=== PATIENT | male | born 1990 | race Caucasian/White ===

== ENCOUNTER 2021-02-06 21:15 | Emergency (ER) | payer MEDICARE, MEDICAID, SELFPAY ==
--- NOTE | ~2021-02-06 | CT_ITS ---
EXAMINATION: CT HEAD WITHOUT CONTRAST CLINICAL INFORMATION: Hit head against the wall. COMPARISON: None. TECHNIQUE: Contiguous axial imaging was performed from the skull base to vertex without intravenous contrast. This CT examination was performed using dose optimization techniques as appropriate, variously including the following: * Automated exposure control * Adjustment of mA and/or kV according to patient size (this includes techniques or standardized protocols for targeted exams where dose is matched to indication/reason for exam; i.e. extremities or head) Use of iterative reconstruction technique DLP: 684 mGy-cm. FINDINGS: There is no evidence of acute intracranial hemorrhage or territorial infarction. No abnormal mass effect or midline shift is seen. Enriquez to white matter differentiation is well preserved. No extra-axial fluid collections are identified. No hydrocephalus. No significant volume loss. There is no abnormal attenuation within the brain parenchyma. The osseous structures and soft tissues are normal. The mastoid air cells are well aerated. Extensive opacification of the paranasal sinuses. CT/CT head/brain wo con IMPRESSION: No acute intracranial pathology. Extends of opacification of the paranasal sinuses.
[2021-02-06 21:21] VITALS: PULSE 83; RESP 20; TEMP 36.4; O2SAT 98; BMI 27.3
[2021-02-06 22:57] VITALS: BP 103/68; PULSE 77; RESP 16
--- NOTE | 2021-02-07 00:31 | ED_ITS ---
HPI - General Adult General Chief complaint: General Medical Stated complaint: head inj Time Seen by Provider: 02/06/21 23:14 Source: patient Mode of arrival: ambulatory History of Present Illness HPI narrative: 30-year-old male with a past medical history of autism, intellectual disability, seizures, fungal infection, intermittent explosive disorder, chronic heart disease, presenting to the ED complaining of swelling/abrasions noted to forehead and nasal bridge S/P head butting wall while in the shower [employer]. Per staff from long-term in which patient resides patient has history of explosive disorder and which he has had similar instances in the past. Denies anticoagulation or LOC. At baseline patient is nonverbal, report he is at his baseline now. Denies injury to other area. Denies nausea, vomiting Onset (ago): hour(s) Related Data Previous Rx's Medication Instructions Recorded acetaminophen [Tylenol Extra 500 mg PO Q6H PRN #20 tab 02/07/21 Strength] doxycycline hyclate 100 mg PO BID 7 Days #14 tab 02/07/21 fluticasone propionate [Flonase 2 spray INTRANASAL DAILY #16 g 02/07/21 Allergy Relief] Allergies Allergy/AdvReac Type Severity Reaction Status Date / Time diphenhydramine Allergy Unknown Verified 02/06/21 21:20 haloperidol [From Haldol] Allergy Unknown Verified 02/06/21 21:20 hydroxyzine Allergy Unknown Verified 02/06/21 21:20 lorazepam Allergy Unknown Verified 02/06/21 21:20 methylphenidate Allergy Unknown Verified 02/06/21 21:20 Penicillins Allergy Unknown Verified 02/06/21 21:20 Review of Systems Review of Systems: Constitutional: No Fever, No Chills ENT/Mouth: No Ear Pain, + Nasal Congestion, No Sinus Pain, No sore throat, + Rhinorrhea, No Swallowing Difficulty, no epistaxis Cardiovascular: No Chest Pain, No SOB Respiratory: No Cough Gastrointestinal: No Nausea, No Vomiting, No Abdominal pain Musculoskeletal: No joint pain Skin: + abrasion, +forehead swelling Neuro: No Weakness, No LOC, +headache History limited as patient is nonverbal. History obtained from staff members Yes all other systems are reviewed and are negative [facility] Past Medical History Attestation statement: The following information was validated with the patient. Medical History (Updated 02/07/21 @ 00:33 by JAMIR Falcon) Autism Chronic heart disease Fungal infection Intellectual disability Intermittent explosive disorder Pervasive developmental disorder Pulmonary stenosis Seizures Social History Social History Advance Directives: No Advance Directives Information Provided: No Physical Exam Vital Signs: Vital Signs: Last Vital Signs Temp 97.6 F 02/06/21 21:21 Pulse 77 02/06/21 22:57 Resp 16 02/06/21 22:57 BP 103/68 02/06/21 22:57 Pulse Ox 98 02/06/21 21:21 Body Mass Index 27.3 Const: General: cooperative, healthy appearing and no acute distress Limitations: other limitations ( nonverbal at baseline) HENMT: Other: + hematoma noted to central forehead with tenderness to palpation. + abrasions and swelling noted to nasal bridge. No active or dry epistaxis. No septal hematoma. Head: Yes No palpable skull fracture present, Yes abrasion, No Olvera's sign and No raccoon eyes Ears: hearing grossly normal bilaterally General nose exam: Normal external nose present Face and sinus: Yes normal facial exam Mouth: Normal oral and palatal mucosa present Eyes: General: appearance normal, both eyes and all related structures Pupils: Equal, round and reactive pupils present EOM: EOMs intact bilaterally Neck: Other: No midline cervical spinous tenderness or step-offs Neck: Yes normal visual inspection and Yes no meningeal signs Resp: Effort & Inspection: normal respiratory effort, no grunting and not labored Cardio: Rate: regular rate GI: Inspection: Yes normal to inspection Palpation (GI): Soft to palpation, nontender, no guarding and not rigid Skin: Rashes: no rashes Wounds: no wounds Neuro: General: tone normal, moves all extremities, no meningeal signs and no focal motor deficits Cranial nerves: Yes Equal, round and reactive pupils present Extrem: General: Yes normal to inspection Course Course Course Narrative: CT head/brain wo con IMPRESSION: No acute intracranial pathology. Extends of opacification of the paranasal sinuses. >>Results discussed with staff members from long-term, report patient has been having increasing rhinorrhea the past couple days. Will treat with antibiotics and Flonase, worrisome signs and symptoms including constant/ persistent worsening headache, nausea / vomiting, weakness, etc to return to the ED, and follow-up with PCP Medical Decision Making MDM Narrative Medical decision making narrative: 30-year-old male with a past medical history of autism, intellectual disability, seizures, fungal infection, intermittent explosive disorder, chronic heart disease, presenting to the ED complaining of swelling/abrasions noted to forehead and nasal bridge S/P head butting wall while in the shower [employer]. on exam VSS, NAD, well appearing, no focal neuro deficits, mental status at baseline. Physical exam as above. Concern for fracture/ICH. Plan: Head CT Discharge Plan Discharge Clinical Impression: Head injury, Sinusitis Patient Disposition: Home, Self-Care Instructions: Sinusitis (ED), Head Injury (ED) Additional Instructions: the CT scan did not show anything wrong in the brain/fractures, however did show an infection in the sinuses doxycycline as an antibiotic, take as prescribed. In addition use Flonase Allergy Relief medication which will help decongest the sinuses. Give Tylenol and Motrin at home for headache. Ice for head If patient develops persistent or worsening headache, nausea, vomiting, weakness, or change in mental status please return to the ED immediately Follow-up with his primary care doctor Prescriptions: New acetaminophen [Tylenol Extra Strength] 500 mg tablet 500 mg PO Q6H PRN (Reason: pain or fever) Qty: 20 RF: 0 fluticasone propionate [Flonase Allergy Relief] 50 mcg/actuation spray,suspension 2 spray intranasal DAILY Qty: 16 RF: 0 doxycycline hyclate 100 mg tablet 100 mg PO BID 7 Days Qty: 14 RF: 0 Referrals: Kirk Burns DO, MD [Primary Care Provider] - 2 days
== END 2021-02-07 00:52 | disposition home or self-care (01) ==
PROVIDERS: Emergency Provider Internal Medicine; PCP Internal Medicine
DX: S00.83XA Contusion of other part of head, initial encounter (principal); S00.31XA Abrasion of nose, initial encounter; J32.9 Chronic sinusitis, unspecified; F84.0 Autistic disorder; F79 Unspecified intellectual disabilities; W22.09XA Striking against other stationary object, initial encounter; Y93.9 Activity, unspecified; Y92.002 Bathroom of unspecified non-institutional (private) residence as the place of occurrence of the external cause; Y99.9 Unspecified external cause status
CPT/HCPCS: 70450; 99284

== ENCOUNTER 2024-06-09 09:06 | Outpatient (AMB) | payer MEDICARE, MEDICAID, SELFPAY ==
--- NOTE | 2024-06-08 18:45 | MHC.OFFVIS ---
Intake Visit Reasons: nocturnal enuresis Intake Note: Patient is present for NOCTURNAL ENURESIS Urology Medication:NONE Antibiotic Allergy:PENICILLINS Blood Thinner:NONE Global Account Executive Required: No Allergies diphenhydramine Allergy (Verified 06/09/24 09:23) Unknown haloperidol [From Haldol] Allergy (Verified 06/09/24 09:23) Unknown hydroxyzine Allergy (Verified 06/09/24 09:23) Unknown lorazepam Allergy (Verified 06/09/24 09:23) Unknown methylphenidate Allergy (Verified 06/09/24 09:23) Unknown Penicillins Allergy (Verified 06/09/24 09:23) Unknown Medication List - Last Reconciled 06/09/24 by Yasmin Corrigan MD acetaminophen (Tylenol Extra Strength) 500 mg PO Q6H PRN buspirone 30 mg PO BID clonidine HCl 0.1 mg PO DAILY diaper,brief,adult,disposable (Fitted Briefs Large) As directed 2 per day. doxycycline hyclate 100 mg PO BID 7 days fluticasone propionate 50 mcg/actuation (Flonase Allergy Relief) 2 sprays intranasal DAILY olanzapine 20 mg PO BEDTIME oxcarbazepine 150 mg PO BID HPI Comments Details: 06/09/2024--John is here with his line department supervisor Taryn, he is currently nonverbal, (line department supervisor states that she has heard him seen with his radio) history of autism seizure disorder. History of shock therapy for over 10 years. The patient is here for evaluation due to enuresis. The line department supervisor states that during the day he goes to the bathroom and she believes it is a behavioral issue that he wets the bed. Urinalysis today is negative. Plan will check renal ultrasound. Discussed depend briefs during the night. [facility] Medical History (Updated 06/09/24 @ 10:09 by Yasmin Corrigan MD) Intellectual disability Fungal infection Pulmonary stenosis Chronic heart disease Pervasive developmental disorder Seizures Intermittent explosive disorder Autism Review of Systems Const All systems reviewed & are unremarkable except as noted in HPI and below Reports no additional complaints Eyes Reports no additional complaints ENT Reports no additional complaints Card Reports no additional complaints Resp Reports no additional complaints GI Reports no additional complaints Reports as per HPI Musc Reports no additional complaints Skin/Breast Reports system reviewed and no additional complaints, except as documented Neuro Reports no additional complaints Psych Reports no additional complaints Endo Reports no additional complaints Tony/Lymph Reports no additional complaints Aller/Immun Reports no additional complaints Physical Exam Const General: healthy appearing, no acute distress and well developed Orientation/consciousness: patient oriented x3 HEENT Head: Yes normocephalic and Yes atraumatic Eyes Conjunctivae: conjunctivae normal Neck Neck: Yes normal visual inspection Chest Chest palpation & inspection: normal inspection of the chest Resp Effort & Inspection: normal respiratory effort Cardio Rate: regular rate GI Inspection: Yes normal to inspection Palpation (GI): Soft to palpation Neuro General: patient oriented x3 Extrem General: No pedal edema Psych Appearance: grossly normal Affect: normal affect Results AMB Urinalysis, Automated UA Leukoctes 0 Ena/uL Last Edit by MACK Day on 06/09/24 10:04 UA Nitrite Negative Last Edit by MACK Day on 06/09/24 10:04 UA Urobilinogen 0.2 mg/dL Last Edit by MACK Day on 06/09/24 10:04 UA Protein 0 mg/dL Last Edit by Last Lopez CCM on 06/09/24 10:04 UA pH 7.0 Last Edit by Last Lopez CCM on 06/09/24 10:04 UA Blood 0 Cory/uL Last Edit by MACK Day on 06/09/24 10:04 UA Specific [place] 1.010 Last Edit by Last Lopez CCM on 06/09/24 10:04 UA Ketone Negative Last Edit by MACK Day on 06/09/24 10:04 UA Bilirubin 0 mg/dL Last Edit by Last Lopez CCM on 06/09/24 10:04 UA Glucose 0 mg/dL Last Edit by Last Lopez CCM on 06/09/24 10:04 Results Reviewed Results Reviewed: Laboratory Last Values Urine pH (Auto) 7.0 06/09/24 10:03 Specific [place] (Auto) 1.010 06/09/24 10:03 Urine Protein (Auto) 0 mg/dL 06/09/24 10:03 Glucose (UA)(Auto) 0 mg/dL 06/09/24 10:03 Urine Ketones (Auto) Negative 06/09/24 10:03 Urine Blood (Auto) 0 Cory/uL 06/09/24 10:03 Urine Nitrite (Auto) Negative 06/09/24 10:03 Urine Bilirubin (Auto) 0 mg/dL 06/09/24 10:03 Urine Urobilinogen (Auto) 0.2 mg/dL 06/09/24 10:03 Leukocyte Esterase (Auto) 0 Ena/uL 06/09/24 10:03 Assessment & Plan Assessment & Plan (1) Enureses: Code(s): R32 - Unspecified urinary incontinence Category: Medical (2) Seizure disorder: Code(s): G40.909 - Epilepsy, unspecified, not intractable, without status epilepticus Category: Medical (3) Autism: Code(s): F84.0 - Autistic disorder Category: Medical Plan Urinalysis today is negative. Plan will check renal ultrasound. Discussed depend briefs during the night. Orders: Orders AMB Urinalysis Automated Today Z13.9 - Encounter for screening, unspecified US renal BI Today R32 - Unspecified urinary incontinence Coding Level of Care Code New Pt Level 4 (92831) Diagnoses Enureses R32 Seizure disorder G40.909 Autism F84.0
== END 2024-06-09 10:10 | disposition home or self-care (01) ==
LOC: HO.HUSH 09:07
PROVIDERS: PCP Internal Medicine; Visit Provider Urology
DX: R32 Unspecified urinary incontinence (principal); G40.909 Epilepsy, unspecified, not intractable, without status epilepticus; F84.0 Autistic disorder; Z13.9 Encounter for screening, unspecified
CPT/HCPCS: 99204

== ENCOUNTER → 2024-06-09 09:06 | Outpatient (BNVA) | payer MEDICARE, MEDICAID, SELFPAY | PROVIDERS: PCP Internal Medicine; Visit Provider Urology | DX: N39.44 Nocturnal enuresis (principal); G40.909 Epilepsy, unspecified, not intractable, without status epilepticus; F84.0 Autistic disorder | CPT/HCPCS: 81003; 99202 ==

== ENCOUNTER 2024-08-22 14:48 | Outpatient (REF) | payer MEDICARE, MEDICAID, SELFPAY ==
--- NOTE | ~2024-08-22 | US_ITS ---
CLINICAL HISTORY: R32 - Unspecified urinary incontinence US Renal Comparison: None Findings: Upper pole of right kidney not well evaluated due to bowel gas /restricted positioning of patient. Right kidney normal size and echotexture, 10.6 cm length. Left kidney normal size and echotexture, 11.2 cm length. No hydronephrosis or renal mass lesion. IMPRESSION: 1. Normal kidneys. This document has been electronically signed by: Kiesha Armenta MD on 08/23/2024 09:05:36
== END 2024-08-22 14:49 | disposition home or self-care (01) ==
LOC: HO.US 14:48
PROVIDERS: PCP Internal Medicine; Visit Provider Urology
DX: R32 Unspecified urinary incontinence (principal)
CPT/HCPCS: 76775

== ENCOUNTER → 2024-08-22 14:50 | Outpatient (BNV) | payer MEDICARE, MEDICAID, SELFPAY | PROVIDERS: PCP Internal Medicine; Visit Provider Radiology Diagnostic Radiology | DX: R32 Unspecified urinary incontinence (principal) | CPT/HCPCS: 76775 ==

== ENCOUNTER 2024-09-05 14:31 | Outpatient (AMB) | payer MEDICARE, MEDICAID, SELFPAY ==
--- NOTE | 2024-09-05 14:31 | A.OFFVIS_ITS ---
Intake Visit Reasons: 10w/US Intake Note: Patient is present for 10W/US Urology Medication:NONE Antibiotic Allergy:PENICILLINS Blood Thinner:NONE Child Daycare Worker Required: No Allergies diphenhydramine Allergy (Verified 09/05/24 14:32) Unknown haloperidol [From Haldol] Allergy (Verified 09/05/24 14:32) Unknown hydroxyzine Allergy (Verified 09/05/24 14:32) Unknown lorazepam Allergy (Verified 09/05/24 14:32) Unknown methylphenidate Allergy (Verified 09/05/24 14:32) Unknown Penicillins Allergy (Verified 09/05/24 14:32) Unknown Medication List - Last Reconciled 09/05/24 by Yasmin Corrigan MD acetaminophen (Tylenol Extra Strength) 500 mg PO Q6H PRN buspirone 30 mg PO BID clonidine HCl 0.1 mg PO DAILY diaper,brief,adult,disposable (Fitted Briefs Large) As directed 2 per day. doxycycline hyclate 100 mg PO BID 7 days fluticasone propionate 50 mcg/actuation (Flonase Allergy Relief) 2 sprays intranasal DAILY olanzapine 20 mg PO BEDTIME oxcarbazepine 150 mg PO BID HPI Comments Details: 09/05/24--Telehealth fu. John resides in residential home, nonverbal, spoke with Taryn director of residential services, reviewed renal US is within normal limits. Taryn states that John is doing well during the day, but cont's to have episodes of bedwetting. Prompted toiletting has helped, making sure he voids prior to sleep. At this time I do not recommend medication. Adult Depends during the night as needed. FU prn. 06/09/2024--John is here with his firearms assembly supervisor Taryn, he is currently nonverbal, (firearms assembly supervisor states that she has heard him seen with his radio) history of autism seizure disorder. History of shock therapy for over 10 years. The patient is here for evaluation due to enuresis. The firearms assembly supervisor states that during the day he goes to the bathroom and she believes it is a behavioral issue that he wets the bed. Urinalysis today is negative. Plan will check renal ultrasound. Discussed depend briefs during the night. [facility] Medical History Intellectual disability Fungal infection Pulmonary stenosis Chronic heart disease Pervasive developmental disorder Seizures Intermittent explosive disorder Autism Review of Systems Const All systems reviewed & are unremarkable except as noted in HPI and below Reports no additional complaints Eyes Reports no additional complaints ENT Reports no additional complaints Card Reports no additional complaints Resp Reports no additional complaints GI Reports no additional complaints Reports as per HPI Musc Reports no additional complaints Skin/Breast Reports system reviewed and no additional complaints, except as documented Neuro Reports no additional complaints Psych Reports no additional complaints Endo Reports no additional complaints Tony/Lymph Reports no additional complaints Aller/Immun Reports no additional complaints Telehealth Telehealth Telehealth Platform: Telephone Location of provider rendering services: practice address Location of patient: address on file Patient Identification confirmed using: Name, : Yes Telehealth method: voice only Patient verbally consented to treatment: Yes Patient verbally consented to billing insurance company: Yes Patient informed of any privacy concerns related to visit: Yes Minutes spent on Phone/Video with Pt.: 13 Results Reviewed Results Reviewed: Date of Service: 08/22/24 CLINICAL HISTORY: R32 - Unspecified urinary incontinence US Renal Comparison: None Findings: Upper pole of right kidney not well evaluated due to bowel gas /restricted positioning of patient. Right kidney normal size and echotexture, 10.6 cm length. Left kidney normal size and echotexture, 11.2 cm length. No hydronephrosis or renal mass lesion. IMPRESSION: 1. Normal kidneys. Assessment & Plan Assessment & Plan (1) Enureses: Code(s): R32 - Unspecified urinary incontinence Category: Medical (2) Seizure disorder: Code(s): G40.909 - Epilepsy, unspecified, not intractable, without status epilepticus Category: Medical (3) Autism: Code(s): F84.0 - Autistic disorder Category: Medical Plan Renal ultrasound. 08/23/24-- WNL. Adult depends prn at bedtime. FU prn. Patient Instructions: This note is constructed in part using voice recognition software. While every effort has been made to ensure accuracy industrial engineering errors may have been included. Coding Level of Care Code Tele Est Pt Level 3 (16252) Diagnoses Enureses R32 Seizure disorder G40.909 Autism F84.0
== END 2024-09-05 16:26 | disposition home or self-care (01) ==
LOC: HO.HUSH 14:31
PROVIDERS: PCP Internal Medicine; Visit Provider Urology
DX: R32 Unspecified urinary incontinence (principal); G40.909 Epilepsy, unspecified, not intractable, without status epilepticus; F84.0 Autistic disorder
CPT/HCPCS: 98016